=== PATIENT | female | born 1990 | race Caucasian/White ===

== ENCOUNTER 2017-06-17 17:10 | Outpatient (CLI) | payer MEDICAID | END 2017-06-17 20:52 | disposition home or self-care (01) | LOC: OBT 17:10 → L-D 17:11 → OBT 20:52 | DX: O36.8330 Maternal care for abnormalities of the fetal heart rate or rhythm, third trimester, not applicable or unspecified (principal); Z3A.39 39 weeks gestation of pregnancy | CPT/HCPCS: 76818 ==

== ENCOUNTER 2017-06-18 05:53 | Inpatient (IN) | payer MEDICAID ==
[2017-06-18] MEDS ORDERED: CARBOPROST 250 MCG INJ IM ×2 (06:30→13:00)
[2017-06-18] MEDS ORDERED: METHYLERGONOVINE 0.2 MG INJ IM ×2 (06:30→13:00)
[2017-06-18] MEDS ORDERED: OXYTOCIN 30 UNITS/LR 500 ML IV (06:30)
[2017-06-18] MEDS ORDERED: MISOPROSTOL 200 MCG TAB PR ×2 (06:30→13:00)
[2017-06-18] MEDS: LACTATED RINGER'S 1,000 ML IV ×3 (06:55→23:21)
[2017-06-18] MEDS ORDERED: OXYTOCIN 30 UNITS/LR 500 ML BAG IV (07:00)
[2017-06-18 07:11] LABS: ADD MAN DIFF? NO
[2017-06-18 07:30] LABS: WHITE BLOOD COUNT 8.2 10^3/ul (4.8-10.8)
[2017-06-18 07:30] LABS: BASOPHILS % 0.5 % (0.0-2.0); EOSINOPHILS # 0.4 10^3/ul (0.0-0.5); EOSINOPHILS % 4.3 % (0.0-7.0); HEMATOCRIT 33.6 % (37.0-47.0); HEMOGLOBIN 10.6 g/dl (12.0-16.0); LYMPHOCYTES # 2.8 10^3/ul (0.8-2.9); MEAN CORPUSCULAR HEMOGLOBIN 24.8 pg (29.0-33.0); MEAN CORPUSCULAR HGB CONC 31.5 g/dl (32.0-37.0); MEAN CORPUSCULAR VOLUME 78.7 fl (82.0-101.0); MEAN PLATELET VOLUME 11.2 fl (7.4-10.4); MONOCYTE # 0.6 10^3/ul (0.3-0.9); NEUTROPHIL # 4.3 10^3/ul (1.6-7.5); NEUTROPHILS % 52.9 % (39.0-77.0); PLATELET COUNT 258 10^3/UL (140-415); RED BLOOD COUNT 4.27 10^6/ul (4.20-5.40)
[2017-06-18 07:34] LABS: INR 0.91; PROTIME 12.3 Sec (11.9-14.9)
[2017-06-18 08:06] LABS: HEPATITIS B SURFACE ANTIGEN NEGATIVE (NEGATIVE)
[2017-06-18] MEDS ORDERED: PHENYLephrine (100 MCG/ML) 5ML SYG (08:21)
[2017-06-18] MEDS ORDERED: morphine SULFATE/PF (10 MG/10 ML) INJ (08:21)
[2017-06-18] MEDS ORDERED: ONDANSETRON 4 MG INJ (08:21)
[2017-06-18] MEDS ORDERED: OXYTOCIN 10 UNIT INJ (08:22)
[2017-06-18] MEDS: OXYTOCIN 30 UNITS/LR 500 ML IV ×2 (09:47→13:27)
[2017-06-18] MEDS ORDERED: FENTAnyl 2MCG/ML-ROPIV 0.2% 100 ML BAG EPI (10:00)
[2017-06-18] MEDS ORDERED: ONDANSETRON 4 MG INJ IV ×2 (10:00→13:00)
[2017-06-18] MEDS ORDERED: morphine 2 MG INJ IV (10:00)
[2017-06-18] MEDS ORDERED: NALOXONE (0.4 MG/ML) INJ IV ×2 (10:00)
[2017-06-18] MEDS ORDERED: DIPHENHYDRAMINE 50 MG INJ IV ×2 (10:00→13:00)
[2017-06-18] MEDS: DIPHENHYDRAMINE 50 MG INJ IV (11:03)
[2017-06-18] MEDS: CEFAZOLIN 2 GM/50 ML (PMX) 50 ML IV (11:07)
[2017-06-18] MEDS: KETOROLAC 30 MG INJ IV (11:54)
[2017-06-18] MEDS ORDERED: ZOLPIDEM 5 MG TAB PO (13:00)
[2017-06-18] MEDS ORDERED: OXYCODONE/ACETAMINOPHEN (5/325) TAB PO (13:00)
[2017-06-18] MEDS: ONDANSETRON 4 MG INJ IV (15:09)
[2017-06-18 15:27] LABS: RAPID PLASMA REAGIN NONREACTIVE (NR)
[2017-06-18] MEDS: SENNA/DOCUSATE NA (8.6MG/50MG) TAB PO (21:00)
[2017-06-19] MEDS: KETOROLAC 30 MG INJ IV (05:32)
[2017-06-19 08:37] LABS: ADD MAN DIFF? NO
[2017-06-19 08:40] LABS: BASOPHILS % 0.3 % (0.0-2.0); EOSINOPHILS # 0.2 10^3/ul (0.0-0.5); EOSINOPHILS % 1.8 % (0.0-7.0); HEMATOCRIT 30.2 % (37.0-47.0); HEMOGLOBIN 9.7 g/dl (12.0-16.0); LYMPHOCYTES # 1.6 10^3/ul (0.8-2.9); LYMPHOCYTES % 17.6 % (15.0-51.0); MEAN CORPUSCULAR HEMOGLOBIN 24.9 pg (29.0-33.0); MEAN CORPUSCULAR HGB CONC 32.1 g/dl (32.0-37.0); MEAN CORPUSCULAR VOLUME 77.6 fl (82.0-101.0); MEAN PLATELET VOLUME 10.6 fl (7.4-10.4); MONOCYTE # 0.5 10^3/ul (0.3-0.9); NEUTROPHIL # 6.5 10^3/ul (1.6-7.5); NEUTROPHILS % 73.6 % (39.0-77.0); PLATELET COUNT 227 10^3/UL (140-415); RED BLOOD COUNT 3.89 10^6/ul (4.20-5.40); RED CELL DISTRIBUTION WIDTH 16.2 % (11.5-14.5)
[2017-06-19 08:40] LABS: WHITE BLOOD COUNT 8.9 10^3/ul (4.8-10.8)
[2017-06-19] MEDS: SENNA/DOCUSATE NA (8.6MG/50MG) TAB PO ×2 (09:05→20:53)
[2017-06-19] MEDS: OXYCODONE/ACETAMINOPHEN (5/325) TAB PO ×3 (09:05→20:54)
[2017-06-19] MEDS: IBUPROFEN 600 MG TAB PO ×2 (12:49→18:10)
[2017-06-19] MEDS: LACTATED RINGER'S 1,000 ML IV (16:00)
[2017-06-20] MEDS: IBUPROFEN 600 MG TAB PO ×4 (00:22→17:35)
[2017-06-20] MEDS: SENNA/DOCUSATE NA (8.6MG/50MG) TAB PO ×2 (08:18→22:04)
[2017-06-20] MEDS: LANOLIN 7 GM TUBE TOP (17:35)
[2017-06-20] MEDS: OXYCODONE/ACETAMINOPHEN (5/325) TAB PO (18:33)
[2017-06-21] MEDS: IBUPROFEN 600 MG TAB PO ×3 (00:56→13:00)
[2017-06-21] MEDS: SENNA/DOCUSATE NA (8.6MG/50MG) TAB PO (09:03)
[2017-06-21] MEDS: DIPHTH/TET/ACEL PERTUSS (ADULT) 0.5 ML VIAL IM* (09:04)
== END 2017-06-21 14:00 | disposition home or self-care (01) | DRG 766 ==
LOC: L-D 05:53 → PP1 12:30
PROVIDERS: Obstetrics & Gynecology
PROC: 10D00Z1 Extraction of Products of Conception, Low, Open Approach (ICD-10-PCS; principal; 2017-06-18 08:00)
PROC: 3E033VJ Introduction of Other Hormone into Peripheral Vein, Percutaneous Approach (ICD-10-PCS; 2017-06-18 08:00)
DX: O34.211 Maternal care for low transverse scar from previous cesarean delivery (principal); O48.0 Post-term pregnancy; Z37.0 Single live birth; Z3A.40 40 weeks gestation of pregnancy
CPT/HCPCS: 85025; 85610; 85730; 86592; 86850; 86900; 86901; 87340; 90715; 99464